=== PATIENT | male | born 1985 | race Hispanic/Latino ===

== ENCOUNTER 2018-03-07 18:01 | Emergency (ER) | payer BC ==
[2018-03-07 18:36] LABS: BASOPHILS % (AUTO) 0.6 % (0.0-5.0); EOSINOPHILS % (AUTO) 3.5 % (0.0-8.0); HEMATOCRIT 47.1 % (42-54); LYMPHOCYTES % (AUTO) 25.8 % (21.0-51.0); MEAN CORPUSCULAR HGB CONC 34.9 g/dL (32.0-36.0); MEAN CORPUSCULAR VOLUME 86.1 fL (79-99); MONOCYTES % (AUTO) 12.1 % (3.0-13.0); PLATELET COUNT (AUTO) 318 K/uL (130-400); RED BLOOD CELL COUNT(AUTO) 5.47 MIL/uL (4.50-6.20); RED CELL DISTRIBUTION WIDTH 13.1 % (11.0-15.5); WHITE BLOOD COUNT (AUTO) 9.7 K/uL (4.8-10.8)
[2018-03-07] MEDS ORDERED: ONDANSETRON HCL MDV 20ML 2 MG/ML VIAL ONE (18:44)
[2018-03-07] MEDS ORDERED: KETOROLAC TROMETHAMINE 15MG/ML ONE (18:44)
[2018-03-07] MEDS ORDERED: SODIUM CHLORIDE 0.9% 1000ML 1,000 ML IV ONE (18:44)
[2018-03-07] MEDS ORDERED: DICYCLOMINE HCL 10 MG/ML 2ML AMP IM ONE (18:44)
[2018-03-07 18:46] LABS: CREATININE 1.1 mg/dL (0.5-1.5); PARTIAL THROMBOPLASTIN TIME 26.5 SEC (26.3-35.5); POTASSIUM 3.4 mmol/L (3.5-5.1); PROTHROMBIN TIME 10.5 SEC (9.6-11.6)
[2018-03-07 18:52] LABS: TOTAL PROTEIN, SERUM 7.8 g/dL (6.0-8.3)
[2018-03-07 20:20] LABS: APPEARANCE,URINE Cloudy (CLEAR); BILIRUBIN,URINE Negative (NEGATIVE); COLOR,URINE Dark Yellow (YELLOW); GLUCOSE, URINE (UA) Negative (NEGATIVE); KETONES,URINE Negative (NEGATIVE); LEUKOCYTE ESTERASE ,URINE Trace (NEGATIVE); NITRATE,URINE Negative (NEGATIVE); OCCULT BLOOD,URINE Negative (NEGATIVE); PROTEIN,URINE Negative (NEGATIVE)
[2018-03-07 20:44] LABS: BACTERIA,URINE Few /HPF (None Seen); MUCUS,URINE Few LPF (None Seen); RBC,URINE None Seen /HPF (0-1)
== END 2018-03-07 21:22 | disposition home or self-care (01) ==
LOC: EDH 18:01
DX: R10.31 Right lower quadrant pain (principal); R19.7 Diarrhea, unspecified; R11.2 Nausea with vomiting, unspecified; E78.5 Hyperlipidemia, unspecified; I10 Essential (primary) hypertension; I25.10 Atherosclerotic heart disease of native coronary artery without angina pectoris; Z72.0 Tobacco use
CPT/HCPCS: 36415; 74176; 80053; 81001; 83690; 85025; 85610; 85730; 96361; 96372; 96374; 96375; 99285; J0500; J1885; J7030

== ENCOUNTER 2019-02-09 06:25 | Day surgery (SDC) | payer BC ==
[2019-02-07 15:25] VITALS: BP 119/73
[2019-02-08] MEDS: CEFAZOLIN SODIUM 1 GM VIAL IVP SCH (13:15)
[2019-02-09] VITALS (20 sets, daily range): BP systolic 81–139; BP diastolic 36–72
[~2019-02-09] VITALS: Ht 182.9 cm; Wt 134.4 kg
[~2019-02-09 06:25] MED LIST: FENO54TA6 PO; LISI1TAB9 PO; PANT40TA25 PO; SERT100T12 PO
[2019-02-09] MEDS ORDERED: LACTATED RINGERS 1000ML 1,000 ML IV ONE (07:36)
[2019-02-09] MEDS ORDERED: LIDOCAINE PF 2% 5ML ABBOJECT ONE (07:45)
[2019-02-09] MEDS ORDERED: MIDAZOLAM HCL 1 MG/ML 2ML VIAL ONE (07:45)
[2019-02-09] MEDS ORDERED: DEXAMETHASONE SOD PHOSPHATE 10MG/ML 1ML VIAL ONE ×2 (07:45→07:55)
[2019-02-09] MEDS ORDERED: SUCCINYLCHOLINE 200MG/10ML SYR ONE (07:45)
[2019-02-09] MEDS ORDERED: ONDANSETRON HCL 4 MG/2 ML VIAL ONE (07:46)
[2019-02-09] MEDS ORDERED: PROPOFOL 10 MG/ML 20ML VIAL IV ONE (07:46)
[2019-02-09] MEDS ORDERED: NEOSTIGMINE 5MG/5ML SYR IV ONE (07:46)
[2019-02-09] MEDS ORDERED: GLYCOPYRROLATE 1 MG/5 ML SYRINGE ONE (07:46)
[2019-02-09] MEDS ORDERED: ROCURONIUM 10MG/1ML SYR 10 MG/ML ML ONE (07:47)
[2019-02-09] MEDS ORDERED: FENTANYL CITRATE PF 50 MCG/1 ML 2ML VIAL ONE ×2 (07:47→10:05)
[2019-02-09] MEDS ORDERED: FAMOTIDINE/PF 20 MG/2 ML VIAL IV ONE (08:03)
[2019-02-09] MEDS ORDERED: BACITRACIN 28.4 GM OINT TP ONE (08:18)
[2019-02-09] MEDS ORDERED: BUPIVACAINE/PF 0.25% 30ML VIAL IJ ONE (08:18)
[2019-02-09] MEDS: CEFAZOLIN SODIUM 1 GM VIAL IVP SCH (09:55)
[2019-02-09] MEDS ORDERED: ALBUTEROL SULFATE 0.083% 2.5 MG/3 ML INH IH ONE (11:33)
[2019-02-09] MEDS ORDERED: EPHEDRINE SULFATE 50 MG/ML AMPULE ONE (12:45)
[2019-02-09] MEDS ORDERED: KETOROLAC TROMETHAMINE 30MG/ML ONE (12:59)
--- NOTE | 2019-02-09 13:15 | NUR ---
PHIL GARCIA AWARE OF PTS STATUS AND CURRENT VS. ORDERS GIVEN TO TRANSFER PT TO DAY PT. FOR DISCHARGE. Addendum: 02/09/19 at 1316 by CASSANDRA GOMEZ RN RN Amended: Links added.
--- NOTE | 2019-02-09 14:10 | NUR ---
CLARIFICATION PTS STATES THAT DR. ALVARADO STATED USING AN ANTISEPTIC WASH FOR POST OP. CLARIFIED WITH DR ALVARADO. STATES NO ORDERS WERE GIVEN FOR AN ANTISEPTIC WASH. JUST PRESCRIPTION FOR KEFLEX AND TYLENOL#3 . DISCHARGE INSTRUCTIONS GIVEN TO PT AND PTS . NO OTHER QUESTIONS AT THIS TIME.
== END 2019-02-09 14:20 | disposition home or self-care (01) ==
LOC: DAH 06:25
PROVIDERS: ATTEND Urology
DX: Z30.2 Encounter for sterilization (principal); N47.1 Phimosis; E66.01 Morbid (severe) obesity due to excess calories; I10 Essential (primary) hypertension; K21.9 Gastro-esophageal reflux disease without esophagitis; F43.10 Post-traumatic stress disorder, unspecified; F32.9 Major depressive disorder, single episode, unspecified; Z79.899 Other long term (current) drug therapy; Z98.890 Other specified postprocedural states
CPT/HCPCS: 54150; 55250; 94640; A4218; A4510; A4600; A4930; J0330; J0690; J1100 ×2; J1885; J2001; J2250; J2405; J2704; J2710; J3010 ×2; J3490 ×4; J7120 ×2

== ENCOUNTER → 2024-04-13 | Outpatient (CLI) | payer BC ==
[~2024-04-13] MED LIST changes: +LISI1TAB49 PO; -LISI1TAB9 PO; -PANT40TA25 PO; +PANT40TA55 PO; +SERT-440 PO; -SERT100T12 PO
== END | disposition home or self-care (01) ==
LOC: RAH 15:47
PROVIDERS: ATTEND Internal Medicine Critical Care Medicine
DX: M54.9 Dorsalgia, unspecified (principal); M25.521 Pain in right elbow
CPT/HCPCS: 72100